=== PATIENT | male | born 1965 ===

== ENCOUNTER 2017-05-29 16:20 | Emergency (ER) | payer MEDICARE ==
--- NOTE | 2017-05-29 17:05 | C.PDOC ---
History Of Present Illness <Amrita Vera - Last Filed: 05/29/17 17:05> <Claudia Coulter - Last Filed: 05/29/17 18:04> 52 y/o male presents to the ER complaining of right upper abdominal pain which gradually developed since yesterday "after I bumped into the sink at home." Patient describes pain as localized over RUQ, not radiating, reproducible. Otherwise, patient denies fever, chills, N/V/D or constipation, back pain, food intolerance, UTI sx, hematuria, denies any other active complaints. Ambulate to Ed for evaluation, not in any apparent distress. (Claudia Coulter) <Amrita Vera - Last Filed: 05/29/17 17:05> History Per: Patient History/Exam Limitations: no limitations Onset/Duration Of Symptoms: Days Current Symptoms Are (Timing): Still Present Severity: Moderate Radiation Of Pain To:: None Associated Symptoms: denies: Nausea, Vomiting, Diarrhea <Claudia Coulter - Last Filed: 05/29/17 18:04> Time Seen by Provider: 05/29/17 17:04 Chief Complaint (Nursing): Abdominal Pain Past Medical History - Social History Hx Alcohol Use: No Hx Substance Use: No - Immunization History Hx Tetanus Toxoid Vaccination: No Hx Influenza Vaccination: No Hx Pneumococcal Vaccination: No <Amrita Vera - Last Filed: 05/29/17 17:05> Reviewed: Historical Data, Nursing Documentation, Vital Signs - Medical History PMH: No Chronic Diseases Surgical History: No Surg Hx Family History: States: No Known Family Hx <Claudia Coulter - Last Filed: 05/29/17 18:04> Vital Signs: Last Vital Signs Temp 97.3 F L 05/29/17 16:23 Pulse 60 05/29/17 16:23 Resp 16 05/29/17 16:23 BP 141/92 H 05/29/17 16:23 Pulse Ox 98 05/29/17 17:29 Review Of Systems Except As Marked, All Systems Reviewed And Found Negative. Constitutional: Negative for: Fever, Chills Gastrointestinal: Positive for: Abdominal Pain (right upper abdominal pain). Negative for: Nausea, Vomiting, Diarrhea Musculoskeletal: Negative for: Back Pain Neurological: Negative for: Weakness, Numbness <Claudia Coulter - Last Filed: 05/29/17 18:04> Physical Exam - Physical Exam Appears: Non-toxic, No Acute Distress Skin: Normal Color, Warm, No Ecchymosis Head: Atraumatic, Normacephalic Eye(s): bilateral: PERRL Nose: No Flaring, No Discharge Oral Mucosa: Moist, No Drooling Throat: No Erythema, No Drooling Neck: Trachea Midline, No Midline Cervical Tenderness, No Paracervical Tenderness, No Step Off Deformity, Supple Chest: Symmetrical Cardiovascular: Rhythm Regular Respiratory: No Decreased Breath Sounds, No Accessory Muscle Use, No Rhonchi, No Stridor Gastrointestinal/Abdominal: Bowel Sounds (normal), Soft, Tenderness (mild tenderness RUQ, no palpable mass, no palpable deformity, no organomegaly, no skin changes. NO bruising.), No Organomegaly, No Distention, No Guarding, No Rebound Back: No Vertebral Tenderness Extremity: Normal ROM, No Deformity, No Swelling Neurological/Psych: Oriented x3, Normal Speech, Normal Cognition <Claudia Coulter - Last Filed: 05/29/17 18:04> ED Course And Treatment O2 Sat by Pulse Oximetry: 98 <Amrita Vera - Last Filed: 05/29/17 17:05> O2 Sat by Pulse Oximetry: 98 (RA) Pulse Ox Interpretation: Normal - Other Rad ABd xray review X-Ray: Interpreted by Me, Viewed By Me Interpretation: (-) acute finidngs. Progress Note: On re-eval, pt is afebrile, hemodynamicalys table. Non-toxic. Ambulatory in ED with stable gait. Pt was given PO challenge by me, tolerated well. Neck: SUpple. Lungs: CTA B/L, BS equal B/L>. ABd: benign, (-) guarding , (-) rebound, (-) organomegaly, (-) skin changes, no ecchymoses noted. Imaging review and appears normal. Pt has clinical findings c/w abdominal pain r/o contusion. Pt advised. ref. to f/u with PMD in 2-3 days for re-eavl. return to ED if any worsening or new changes. <Claudia Coulter - Last Filed: 05/29/17 18:04> Medical Decision Making <Amrita Vera - Last Filed: 05/29/17 17:05> <Claudia Coulter - Last Filed: 05/29/17 18:04> Medical Decision Making: Impression: Right Upper Abdominal Pain Plan: --Tylenol 975 mg PO --Abd 2 Views (Claudia Coulter) Disposition <Amrita Vera - Last Filed: 05/29/17 17:05> Counseled Patient/Family Regarding: Studies Performed, Diagnosis, Need For Followup, Rx Given - Disposition Disposition Time: 17:25 <Claudia Coulter - Last Filed: 05/29/17 18:04> - Disposition Referrals: [facility] [Outside] Disposition: HOME/ ROUTINE Condition: STABLE Additional Instructions: AVOID PHYSICAL ACTIVITY FOR 1 WEEK TYLENOL NEED FOR PAIN FOLLOW UP WITH PMD IN 1-2 DAYS FOR RE-EVALUATION. RETURN TO ED AT ANY TIME IF ANY WORSENING OR ABDOMINAL PAIN, VOMITING OR ANY OTHER NEW CHANGES. Instructions: Abdominal Pain (ED) Forms: [facility] (Thai) - Clinical Impression Clinical Impression: Abdominal wall contusion <Amrita Vera - Last Filed: 05/29/17 17:05> - PA / OUTPATIENT THERAPIST / Resident Statement MD/DO has reviewed & agrees with the documentation as recorded. - Scribe Statement The provider has reviewed the documentation as recorded by the Scribe <Claudia Coulter - Last Filed: 05/29/17 18:04> - Scribe Statement Madisyn Celayaq All medical record entries made by the Scribe were at my direction and personally dictated by me. I have reviewed the chart and agree that the record accurately reflects my personal performance of the history, physical exam, medical decision making, and the department course for this patient. I have also personally directed, reviewed, and agree with the discharge instructions and disposition. (Claudia Coulter)
[2017-05-29 18:10] VITALS: BP 138/75; PULSE 58; RESP 18; TEMP 98.2; O2SAT 97
--- NOTE | 2017-05-30 09:43 | RAD ---
HISTORY: injury COMPARISON: No prior. FINDINGS: BOWEL: The bowel gas pattern is non specific. There is no bowel obstruction. No free intraperitoneal air. BONES: Normal. OTHER FINDINGS: None. IMPRESSION: No acute findings. No pneumoperitoneum.
== END 2017-05-29 18:12 | disposition home or self-care (01) ==
LOC: C.ER 16:20
DX: S30.1XXA Contusion of abdominal wall, initial encounter (principal); W22.09XA Striking against other stationary object, initial encounter; Y92.008 Other place in unspecified non-institutional (private) residence as the place of occurrence of the external cause